=== PATIENT | male | born 1990 | race Caucasian/White ===

== ENCOUNTER 2020-11-12 08:29 | Outpatient (CLI) | payer OTHER, SELFPAY ==
--- NOTE | ~2020-11-12 | XR_ITS ---
XR knee RT 3V 11/12/2020 08:49 INDICATION: Right knee pain PROCEDURE: 3 views right knee COMPARISON: 08/05/2019 FINDINGS: Fracture, dislocation or subluxation is not identified. No significant joint effusion. The soft tissues appear within normal limits. No foreign bodies are identified. IMPRESSION: 1: NO ACUTE BONE OR JOINT ABNORMALITY IDENTIFIED. Reviewed, dictated and finalized at location B.
== END 2020-11-12 08:30 | disposition home or self-care (01) ==
LOC: CHSIMG 08:32
PROVIDERS: PCP Nurse Practitioner Family; Visit Provider Nurse Practitioner Family
DX: M25.561 Pain in right knee (principal)
CPT/HCPCS: 73562

== ENCOUNTER 2020-12-29 07:01 | Outpatient (CLI) | payer OTHER, SELFPAY ==
--- NOTE | ~2020-12-29 | MR_ITS ---
EXAMINATION: MR knee RT wo con DATE: 12/29/2020 08:21 INDICATION: 2 years of the medial right knee pain TECHNIQUE: Magnetic resonance imaging (MRI) of the right knee was performed without intravenous contr ast. Sequences included coronal PD-weighted FSE, coronal PD-weighted FS FSE, sagittal T2-weighted FS E, sagittal PD-weighted FS FSE and axial PD weighted fat saturated FSE. COMPARISON: None. FINDINGS: Medial compartment: Complex tear involving the body and posterior horn of the medial meniscus which includes both longitu dinal horizontal and vertical tear planes. There appears be a long flap of meniscal tissue extending cephalad from the posterior root into the posterior recess at the intercondylar notch along the poste rior and medial margin of the midportion of the posterior cruciate ligament. 4 x 3 x 4 mm paramenisca l cyst at the junction of the body and posterior horn. 1.5 x 1.3 x 0.7 cm parameniscal cyst extending medially from the posterior horn position posterior to the distal posterior cruciate ligament. Artic ular cartilage is normal. Lateral compartment: Lateral meniscus is normal. Articular cartilage is normal. Patellofemoral compartment: Near full-thickness sagittal oriented chondral fissure without degenerative subchondral changes which extends 7 mm craniocaudally at the central aspect of the apical ridge. Small region of partial-thick ness chondral ulceration with chondral surface irregularity at the medial side of the medial patellar facet. Small partial-thickness chondral fissure at the central aspect of the trochlear groove. Ligaments and tendons: Anterior and posterior cruciate ligaments are normal. The medial collateral ligament and fibular peter ateral ligament complex are normal. Mild tendinopathy at the patellar insertion of the proximal caba lar tendon. The quadriceps tendon is normal. The visualized medial and lateral hamstring tendons as w ell as the iliotibial band are normal. Fluid: Small to moderate sized right knee joint effusion. No loose osteochondral bodies identified. Osseous/other: Minimal marrow edema and cystic change at the posterior root of the medial meniscus. Marrow signal is otherwise normal. No fracture or pathologic marrow replacing process. IMPRESSION: 1. Complex tear of the body and posterior horn of the medial meniscus with displaced meniscal flap an d a couple parameniscal cysts as detailed above. 2. Mild patellofemoral osteoarthritis with regions of moderate grade chondromalacia at the patella an d trochlea groove. 3. Small to moderate-sized right knee joint effusion. 4. Mild proximal patellar tendinopathy. Reviewed, dictated and finalized at location A. IMPRESSION: 1. Complex tear of the body and posterior horn of the medial meniscus with disp laced meniscal flap and a couple parameniscal cysts as detailed above. 2. Mild patellofemoral osteoarthritis with regions of moderate grade chondromal acia at the patella and trochlea groove. 3. Small to moderate-sized right knee joint effusion. 4. Mild proximal patellar tendinopathy.
== END 2020-12-29 07:02 | disposition home or self-care (01) ==
LOC: CHSIMG 07:06
PROVIDERS: PCP Nurse Practitioner Family; Visit Provider Nurse Practitioner Family
DX: M25.561 Pain in right knee (principal)
CPT/HCPCS: 73721

== ENCOUNTER 2021-03-25 02:30 | Day surgery (SDC) | payer OTHER, SELFPAY ==
[2021-03-18 15:01] VITALS: BMI 28.8
[2021-03-25] VITALS (9 sets, daily range): BP systolic 117–133; BP diastolic 81–104; PULSE 61–106; RESP 15–19; TEMP 36.3–36.7; O2SAT 97–100
[2021-03-25] MEDS: CELECOXIB 200 MG CAPSULE PO (06:26)
[2021-03-25] MEDS: ACETAMINOPHEN 500 MG TABLET 1000 MG PO (06:26)
[2021-03-25] MEDS: LACTATED RINGERS 1,000 ML 30 ML IV CONT (06:33)
--- NOTE | 2021-03-25 06:46 | P.PNAN_ITS ---
Anes - Initial Pre Proc Eval Procedure: Operation Date: 03/25/21 07:30 Proposed Procedures p Right Knee Arthroscopy, Proceed As Indicated - Julio Cesar Llanes MD Date/Time: 03/25/21 06:46 Surgeon: Julio Cesar Llanes MD Pre Op Diagnosis: Right knee Medial Meniscus tear Patient Data Age: 30 Gender: M Height: 1.83 m Weight: 99.1 kg Last Vital Signs Temp 36.7 C 03/25/21 06:07 Pulse 61 03/25/21 06:07 Resp 18 03/25/21 06:07 BP 129/93 H 03/25/21 06:07 Pulse Ox 100 03/25/21 06:07 Allergies Allergy/AdvReac Type Severity Reaction Status Date / Time No Known Allergies Allergy Verified 03/25/21 06:14 Home Medications Medication Instructions Recorded Confirmed Type No Home Medications 03/18/21 03/25/21 History Patient hx anesthesia problems: none Family hx anesthesia problems: none PMFSH Past Medical History Medical History Effusion, right knee Knee pain Medial meniscus tear Right knee pain Surgical History Surgical History H/O vasectomy History of appendectomy Family History Family History Father Family history of type 2 diabetes mellitus Social History Social History Smoking packs per day: 0 Smoking cigarettes per day: 0.0 Smoking status: Never smoker Smokeless tobacco user: chewing tobacco Substance use: never Substance use type: does not use Living arrangements: with family 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 Questions were solicited and answers provided to the satisfaction of the patient/family/POA.
--- NOTE | 2021-03-25 07:18 | WPDHPUPDATE1 ---
History and Physical Update Update Date/Time: 03/25/21 07:18 History and Physical has been reviewed, including an updated exam of the patient. There are NO changes in the patient's condition. Risks, benefits, and alternatives have been discussed and questions answered. Patient agrees to proceed with procedure.
[2021-03-25] MEDS: ceFAZolin 2 GM/D5W 50 ML 2 GM/50 ML BAG IVPB (07:28)
--- NOTE | 2021-03-25 09:18 | W.PM.PROC2 ---
Procedure Note - Detailed Date of Procedure 03/25/21 Pre-op Diagnosis Right knee Medial Meniscus tear Post-op Diagnosis same Procedure Performed RIGHT KNEE SCOPE Surgeon Julio Cesar Llanes MD Anesthesia general Description of Procedure PATIENT WAS TAKEN TO THE OR. RIGHT LEG WAS PREPPED AND DRAPED STERILE. TROCARS WERE PLACED IN THE USUAL FASHION. CAMERA WAS INTRODUCED. THERE WAS CHONDROMALACIA TO THE PATELLA FEMORAL JOINT. THERE WAS A LOT OF SYNOVITIS IN ALL COMPARTMENTS. THE MEDIAL COMPARTMENT SHOWED CHONDROMALACIA TO THE MEDIAL FEMORAL CONDYLE. A SHAVER WAS USED TO PREFORM A CHONDROPLASTY. THERE WAS A COMPLEX MEDIAL MENISCUS TEAR. THE TEAR WAS RESECTED WITH A BITER AND A SHAVER DOWN TO A SMOOTH BASE. ABOUT 30% OF THE MENISCUS WAS REMOVED. SYNOVECTOMY WAS PREFORMED. THE ACL WAS INTACT. THE LATERAL MENISCUS WAS NOT TORN. THE LATERAL COMPARTMENT HAD NO CHONDROMALACIA AT THE LATERAL FEMORAL CONDYLE NOR THE LATERAL PLATEAU. A SYNOVECTOMY WAS PREFORMED. THE PATELLO FEMORAL JOINT UNDERWENT CHONDROPLASTY. THERE WAS GRADE 2 CHONDROMALACIA IN THE MEDIAL FACET OF THE PATELLA. SYNOVECTOMY WAS PREFORMED IN THE SUPERIOR MEDIAL COMPARTMENT. THE WOUNDS WERE APPROXIMATED WITH 4.0 NYLON. STERILE DRESSING WAS APPLIED. PATIENT WAS EXTUBATED. Estimated Blood Loss 10 Complications No immediate complications Condition stable Disposition PACU
[2021-03-25] MEDS: fentaNYL CITRATE INJ (*CRX) 100 MCG/2 ML VIAL 25 MCG IV PUSH ×4 (09:33→09:46)
[2021-03-25] MEDS: oxyCODONE HCL (*CRX) 5 MG TAB IR PO (10:19)
--- NOTE | 2021-03-25 10:35 | SUR.PHASEII ---
1035- spoke with regarding pt discharge instructions. Suggested that later on this afternoon that they be reviewed to see if any questions or concerns are present.
--- NOTE | 2021-03-25 11:14 | SUR.PHASEII ---
1100- crutches obtained for pt to take home.
== END 2021-03-25 11:07 | disposition home or self-care (01) ==
PROVIDERS: PCP Nurse Practitioner Family; Visit Provider Orthopaedic Surgery
PROC: (CPT 29870; principal; 2021-03-25 07:30)
DX: S83.231A Complex tear of medial meniscus, current injury, right knee, initial encounter (principal); M65.861 Other synovitis and tenosynovitis, right lower leg; M94.261 Chondromalacia, right knee; W19.XXXA Unspecified fall, initial encounter; F17.220 Nicotine dependence, chewing tobacco, uncomplicated
CPT/HCPCS: 29881; 29876; A9270; J0690; J1100; J2250; J2405; J2704; J3010; J7120

== ENCOUNTER 2021-06-15 08:55 | Outpatient (RCR) | payer OTHER, SELFPAY ==
--- NOTE | 2021-06-15 09:58 | PTOPEVAL ---
Thank you for referring Lee Corona to [facility].? The patient is scheduled to be seen for therapy? ____x/week for ___ weeks. Please review, sign, date and return this plan of care DONATO. I agree with and certify that the following plan of care is medically necessary. Referring Physician Date Admitting Provider: Attending Provider: Julio Cesar Llanes MD Referring Provider: *PT Outpatient Evaluation Start: 06/15/21 08:53 Freq: Status: Active Protocol: Document 06/15/21 09:00 [facility] (Rec: 06/15/21 09:57 [facility] [id number]) Therapy Assessment Status Assessment Status Assessment Status Evaluation Outpatient Past Medical History Neurological History Hx Neurological Disorders No Significant History Cardiovascular History Hx Cardiac Disorders No Significant History Respiratory History Hx Respiratory Disorders No Significant History Gastrointestinal History Hx Appendectomy Yes Genitourinary History Hx Genitourinary Disorders No Significant History Musculoskeletal History Hx Other Musculoskeletal Disorders Yes: RT MENISCUS TEAR Hematological History Hx Hematological Disorders No Significant History Endocrine History Hx Endocrine Disorders No Significant History HEENT History Hx HEENT Disorders No Significant History Integumentary History Hx Skin Disorders No Significant History Reproductive History Hx Reproductive Disorders No Significant History Psychosocial History Hx Psychiatric Disorders No Significant History Pain History Has Past Pain Affected Your Daily Life Yes: RATES PAIN 2/10 ON A DAILY BASIS Anesthesia History Hx Anesthesia Reactions No Significant History Evaluation Information Problem Diagnosis R knee arthroscopy Onset 03/25/21 Additional Evaluation Detail LEFS = 61% functionally declined Subjective Information patient reports he had a R Query Text:As Reported By Patient/ knee scope 12 weeks ago. he Family reports he had a meniscus tear in the R knee of unknown injury. he reports he had pain in the R knee for 2 years prior to being able to get an MRI and surgeon to operate on the knee. he reports now, he has had fluid drained 3 times. he reports yesteday was his last fluid drain and was injected with cortizone. he reports he was told by the MD his muscles in the operative leg
--- NOTE | 2021-09-28 07:50 | PCPTNOTE ---
mr. mo has not been to skilled PT in over 2 months. as of this date he will be dc'd from skilled PT services and all progress towards goals will be taken from his most recent evaluation/note. ALEYDA
== END 2021-07-04 23:59 | disposition home or self-care (01) ==
LOC: CHSPT 08:55
PROVIDERS: PCP Nurse Practitioner Family; Visit Provider Orthopaedic Surgery
DX: Z98.890 Other specified postprocedural states (principal)
CPT/HCPCS: 97110; 97140; 97161; 97530

== ENCOUNTER 2021-08-26 10:06 | Outpatient (CLI) | payer OTHER, SELFPAY ==
[2021-08-26 11:05] LABS: SARS-CoV-2 Ag Positive (Negative)
== END 2021-08-26 10:07 | disposition home or self-care (01) ==
LOC: CHSLAB 10:07
PROVIDERS: PCP Nurse Practitioner Family; Visit Provider Nurse Practitioner Family
DX: U07.1 COVID-19 (principal)
CPT/HCPCS: 87426; C9803

== ENCOUNTER 2022-06-24 19:15 | Emergency (ER) | payer OTHER, SELFPAY ==
[2022-06-24 19:25] VITALS: BP 123/88; PULSE 80; RESP 20; TEMP 36.6; O2SAT 98
--- NOTE | 2022-06-24 19:25 | PC.NURSE ---
ERP Dr Ling in to evaluate pt. Orders received per written physician order sheet due to Website down. See hardcopy orders in pt chart.
[2022-06-24] MEDS: KETOROLAC (*BKC) 60 MG/2 ML VIAL (19:45)
[2022-06-24] MEDS: ORPHENADRINE CITRATE 30 MG/ML 2 ML VIAL 60 MG (19:45)
[2022-06-24 20:02] VITALS: BP 128/71; PULSE 87; RESP 20; TEMP 36.6; O2SAT 99
--- NOTE | 2022-06-24 20:05 | ED.BACK ---
HPI - Back Pain/Injury General Chief Complaint: Back Pain/Injury Stated Complaint: back pain Source: patient Mode of arrival: ambulatory Limitations: no limitations History of Present Illness HPI Narrative: This is a 32-year-old that presents with low back pain rates it at a 7/10 no known injury with no radiation down his legs it is the L4 paravertebral area on the left tender was seen by his primary care physician and started on some muscle relaxants and he says that it helped but minimally. There is no saddle paresthesias no dysuria no bowel or bladder dysfunction no fever chills. MD elicited complaint: back pain Pertinent past history: prior back pain Onset (ago): hour(s) Timing: intermittent Severity: moderate Pain scale (0-10): 7 Quality: dull Location: lumbar spine Related Data Allergies Allergy/AdvReac Type Severity Reaction Status Date / Time No Known Allergies Allergy Verified 06/23/22 07:31 Review of Systems Review of Systems: All systems reviewed & are unremarkable except as noted in HPI and below PMFSH Past Medical History Medical History Effusion, right knee Knee pain Medial meniscus tear Right knee pain Surgical History Surgical History H/O vasectomy History of appendectomy Family History Family History Father Family history of type 2 diabetes mellitus Social History Social History Smoking status: Current every day smoker Tobacco type: smokeless tobacco Smokeless tobacco user: chewing tobacco Substance use: never Substance use type: does not use Has the Lack of Transportation Kept You From Medical Appointments or From Getting Medications?: No Within the Past 12 Months, Were You Worried Whether Your Food Would Run Out Before You Got Money to Buy More?: Never True What is Your Housing Situation Today?: I Have Housing Are You Worried That in the Next 2 Months, You May Not Have Your Own Housing to Live In?: No Do You Have Trouble Paying Your Heating Or Electricity Bill?: No Do You Have Trouble Paying For Medicines?: No Are You Currently Unemployed and Looking for Work?: No Highest Level of Education Completed: High School Diploma/GED Do You Have Trouble With Childcare or the Care of a Family Member?: No 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 Spiritual care concerns: No Exam Const: General: healthy appearing Nutritional Appearance: well nourished Limitations: no limitations HENMT: Head: normal to inspection Face/Nose/Sinus: Normal external nose present Face and sinus: normal facial exam Mouth: Yes Normal oral and palatal mucosa present Eyes: Conjunctivae: conjunctivae normal Neck: Neck: normal visual inspection Chest: Chest palpation & inspection: normal inspection of the chest Resp: Effort & Inspection: normal respiratory effort Auscultation: clear to auscultation bilaterally Cardio: Rate: regular rate Rhythm: regular rhythm GI: Auscultation: normal bowel sounds : General: Yes bladder normal to palpation Urinary Catheter: Urinary Catheter: patent and draining Skin: General skin exam: normal color Rashes: no rashes Neuro: General: patient oriented x3, moves all extremities and no meningeal signs Extrem: General: normal to inspection, no clubbing, cyanosis or edema and no pedal edema Psych: Mental Status: mental status grossly normal Affect: normal affect Course Course Emergency Course: Patient received muscle relaxer IM and Toradol reassessment of patient symptoms have improved. Vital Signs Vital signs: Vital Signs Temperature 36.6 C 06/24/22 19:25 Pulse Rate 80 06/24/22 19:25 Respiratory Rate 20 06/24/22 19:25 Blood Pressure 123/88 06/24/22 19:25 Pulse Oximetry 98 06/24/22 19:
== END 2022-06-24 20:18 | disposition home or self-care (01) ==
PROVIDERS: Emergency Provider Emergency Medicine; PCP Family Medicine
DX: S39.012A Strain of muscle, fascia and tendon of lower back, initial encounter (principal)
CPT/HCPCS: 96374; 96375; 99284; J1885; J2360

== ENCOUNTER 2022-09-07 15:47 | Outpatient (CLI) | payer OTHER, SELFPAY ==
[2022-09-07 16:37] LABS: HIV 1 P24 AG Negative (Negative); HIV 1/2 AB Negative (Negative)
[2022-09-10 13:23] LABS: RPR Screen Non-Reactive (Non-Reactive)
[2022-09-10 22:05] LABS: Hepatitis A Antibody IgM Nonreactive; Hepatitis B Core Antibody Nonreactive (Nonreactive); Hepatitis B Surface Antigen Nonreactive (Nonreactive); Hepatitis C Signal to Cutoff 0.02 ratio (<1.00); Hepatitis C Virus Antibody Nonreactive (Nonreactive)
== END 2022-09-07 15:48 | disposition home or self-care (01) ==
LOC: CHSLAB 15:49
PROVIDERS: PCP Family Medicine; Visit Provider Family Medicine
DX: R74.01 Elevation of levels of liver transaminase levels (principal); Z72.51 High risk heterosexual behavior; Z20.2 Contact with and (suspected) exposure to infections with a predominantly sexual mode of transmission
CPT/HCPCS: 36415; 80074; 86592; 86703; 87491; 87591; 87661

== ENCOUNTER 2022-09-29 09:17 | Outpatient (NON) | payer OTHER, SELFPAY | END 2022-09-29 09:18 | disposition home or self-care (01) | LOC: CHSLAB 09:19 | PROVIDERS: Visit Provider Nurse Practitioner Family | DX: N36.8 Other specified disorders of urethra (principal); Z20.2 Contact with and (suspected) exposure to infections with a predominantly sexual mode of transmission | CPT/HCPCS: 87086; 87491; 87591 ==